=== PATIENT | male | born 1990 | race Caucasian/White ===

== ENCOUNTER 2017-08-30 14:52 | Inpatient (IN) | payer MEDICAID, SELFPAY ==
[2017-08-30 15:25] VITALS: BP 139/73; PULSE 73; RESP 16; TEMP 35.9; O2SAT 100; BMI 18.7
--- NOTE | 2017-08-30 15:58 | PCM.HP.STD ---
Problem List (1) Polysubstance (including opioids) dependence, daily use Status: Chronic (2) Mild benzodiazepine use disorder Status: Chronic (3) Opioid withdrawal delirium, acute, hyperactive Status: Acute (4) Nicotine dependence Status: Chronic (5) Methamphetamine dependence, continuous Status: Chronic History of Present Illness Date of Admission: 08/30/17 Chief Complaint: Opioid withdrawal symptoms The patient is a 27 year old M with history of polysubstance use including IV heroin, IV methamphetamine, occasional Xanax and nicotine dependence was admitted through [facility] for medical stabilization of acute opioid and polysubstance withdrawal syndrome. Patient complaining of restlessness, anxiety, muscle aches and pain, dry mouth. He denies diarrhea. He never been admitted for medical stabilization. 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 He still follows every 3 month and [facility]. His sed rate is in remission and does not require adjuvant treatment. [] Past Medical History Past Medical History (Chronic Problems): Chronic Problems Polysubstance (including opioids) dependence, daily use (Chronic) Mild benzodiazepine use disorder (Chronic) Nicotine dependence (Chronic) Methamphetamine dependence, continuous (Chronic) Home Medications: Ambulatory Orders Medication Instructions Recorded NK [NK] 08/30/17 Smoking Status: Current every day smoker Alcohol: None Drugs: Heroin - *Family History Paternal History Items: No pertinent history Review of Systems Constitutional: Reports: Malaise, Weakness, Fatigue. Denies: Chills, Fever, Weight Change HEENT: Denies: Head Aches, Sinus Congestion, Sinus Drainage Cardiovascular: Denies: Chest Pain, Palpitations Respiratory: Denies: Cough, Shortness of breath at rest, Sputum production Gastrointestinal: Denies: Abdominal Pain, Nausea, Vomiting Genitourinary: Denies: Dysuria Musculoskeletal: Reports: Joint Pain, Leg Pain, Muscle pain. Denies: Joint Tenderness Skin: Denies: Rash, Wounds Neurological: Denies: Numbness, Tingling, Focal weakness Psychiatric: Reports: Anxiety. Denies: Depression, Homicidal Ideations, Suicidal Ideations Hematologic/ Lymphatic: Denies: Easy Bruising, Easy Bleeding VTE Information - Inpt Only VTE Present on Admission: No VTE Mechan Device Prophylaxis: None VTE Pharm Prophylaxis ordered?: No Reason prophylaxis not ordered:: Procedure Not Indicated - Low risk Patient Problems: Active and Suspected Problems Opioid withdrawal delirium, acute, hyperactive (Acute) - Physical Exam General: Alert, Oriented x3, Cooperative HEENT: Atraumatic, PERRLA, EOMI, Normocephalic Oral: Dry Mucosa, - - Right lateral half of lung resection. On exam scar tissue palpated. Neck: Supple, No JVD, Negative Carotid Bruits Lungs: Clear to auscultation, Normal air movement, No rhonchi, No wheeze, No rales Cardiovascular: Regular rate, No murmurs Abdomen: Bowel Sounds Present, Soft, Non Tender Extremities: No edema, Capillary Refill Less than 3 Seconds Skin: No rashes, No breakdown, - - Needle zeng presents of her bilateral antecubital region Musculoskeletal: No Tenderness to Palpation of Joints or Extremities Lymphatic: - - No cervical adenopathy Neurological: Cranial nerves II-XII grossly intact, Neuro grossly intact Psych/Mental Status: Normal Affect, Appropriate Vital Signs Temp Pulse Resp BP Pulse Ox 96.6 F L 73 16 139/73 H 100 08/30/17 15:25 08/30/17 15:25 08/30/17 15:25 08/30/17 15:25 08/30/17 15:25 Oxygen Delivery Method Room Air Assessment/Plan Active and Suspected Problems Opioid withdrawal delirium, acute, hyperactive (Acute) The patient is a 27 year old M with history of polysubstance use including IV heroin, IV methamphetamine, occasional Xanax and nicotine dependence was admitted through [facility] program for medical stabilization of acute opioid and polysubstance withdrawal syndrome. Patient complaining of restlessness, anxiety, muscle aches and pain, dry mouth. He denies diarrhea. He never been admitted for medical stabilization. 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 He still follows every 3 month and [facility]. His sed rate is in remission and does not require adjuvant treatment. [] 1. Acute heroin withdrawal: Patient is being admitted on the regular floor and on [facility] protocol for medical stabilization. Labs ordered stat including hepatitis profile, folic acid, B12 and vitamin B1. Patient denies previous history of needle abscess or infective endocarditis. 2. Polysubstance use including IV heroin, methamphetamine, occasional use of benzodiazepine, Xanax: U tox is ordered. Counseling done for cessation of substance use. Patient will need outpatient rehab as per [facility] protocol. 3. Tongue cancer status post right lateral half glossectomy: In remission. Follows [facility] ENT every quarterly as mentioned above 4. Nicotine dependence: On nicotine patch. DVT prophylaxis: Low risk no prophylaxis indicated. Code Visit Inpatient E&M: 19810 Init Hosp L3
[2017-08-30 16:05] VITALS: RESP 16
[2017-08-30] MEDS: Ibuprofen 600 MG Tablet PO (16:25)
[2017-08-30] MEDS: Buprenorphine HCl 2 MG TAB.SUBL SL ×2 (16:25→23:31)
[2017-08-30] MEDS: cloNIDine HCl 0.1 MG Tablet PO (16:25)
[2017-08-30] MEDS: chlordiazePOXIDE 25 MG Capsule PO ×3 (16:26→23:31)
[2017-08-30] MEDS: Methocarbamol 750 MG Tablet PO (16:26)
--- NOTE | 2017-08-30 16:28 | NURSING ---
Jj Rodriguez, at the bedside.
[2017-08-30 16:34] LABS: Prothrombin Time (Protime)PT. 12.8 SECONDS (11.7-14.9)
--- NOTE | 2017-08-30 16:41 | CHAPLAIN ---
Type of Pastoral Visit _x__ Initial Visit ___ Follow-up Visit ___ On-call Visit ___ General Patient Visit ___ Spiritual Assessment ___ Family Conference ___ Bereavement ___ Rapid Response ___ Code Blue ___ Other (describe below) Pastoral Care Referral From _x__ Patient ___ Family ___ Nurse ___ Physician ___ Director Of Public Works ___ Revenue Stamper _x - [facility] staff - Other (describe below) Sacrament/Intervention _x__ Active listening ___ Anointing ___ Islam ___ Bereavement ___ Communion ___ Brittny exploration ___ _x__ Life review _x__ Prayer ___ Reconciliation ___ Sacrament of Sick _x__ Supportive presence ___ Wedding ___ Other (describe below) Pastoral Comments eleven years of drug use admitted by patient; patient mother of suicide two years ago next week and pt admits that I have not dealt with that yet; pt has Alevism heritage and synagogue involvement as young person but says that he wavers in brittny; pt is musical and plays drums and guitar
[2017-08-30 17:00] LABS: ALB/GLOB Ratio 0.8 RATIO (0.9-2.4); AST(SGOT) 14 U/L (15-37); Alanine Aminotransfer ALT/SGPT 18 U/L (12-78); Albumin, Serum 3.3 g/dL (3.4-5.0); Alkaline Phosphatase 66 U/L (45-117); Amylase 51 U/L (25-115); Anion Gap 6 (5-15); BUN 11 mg/dL (7-18); BUN/Creat Ratio 14.2 RATIO (10-20); Calcium,Total 8.3 mg/dL (8.5-10.1); Chloride 104 mmol/L (98-107); Creatinine, Serum 0.77 mg/dL (0.70-1.30); EST Glomerular Filtration Rate 126 mL/min (>60); Est Glom Filt Rate - Afr Amer 153 mL/min (>60); Estimated Creatinine Clearance 136.15 ml/min; Glucose 70 mg/dL (70-110); Lipase 106 U/L (73-393); Potassium 3.7 mmol/L (3.5-5.1); Protein, Total 7.3 g/dL (6.4-8.2); Sodium Level 141 mmol/L (136-145)
[2017-08-30 17:07] LABS: Alcohol, Blood (Medical)-Serum < 3.0 mg/dL
[2017-08-30 17:58] LABS: Absolute Lymphocyte Count 3.22 X10^3/ul (0.83-4.51); Absolute Neutrophil Count 5.1 X10^3/uL (2.0-7.7); Basophil# 0.34 X10^3/uL; Basophil% 3.5 % (0-1); Eosinophil# 0.32 X10^3/uL; Eosinophils% 3.3 % (0-5); Hematocrit 38.1 % (40-54); Lymphocyte # 3.22 X10^3/ul (4.0); Lymphocyte % 32.9 % (19-41); Mean Corp Hgb Conc 34.1 g/gl (32-36); Mean Corpuscular Hgb 33.1 pg (27.0-32.0); Mean Corpuscular Volume 96.9 fL (80-94); Mean Platelet Vol. 10.2 fl (6.2-12.0); Monocyte# 0.75 X10^3/uL; Monocyte% 7.7 % (0-10); Neutrophil # 5.13 X10^3/uL (2.7-7.7); Neutrophil % 52.2 % (47-70); Platelet Count 251 K/mm3 (150-450); RBC Distribution Width SD 41.6 fl (35.1-43.9); Red Blood Count 3.93 M/mm3 (4.6-6.2); White Blood Count 9.8 K/mm3 (4.4-11.0)
[2017-08-30 17:59] LABS: Differential Indicated SCAN CRITERIA MET; POSITIVE COUNT NO; POSITIVE DIFFERENTIAL NO; POSITIVE MORPHOLOGY YES
[2017-08-30 18:08] LABS: Amphetamine Urine VISTA NEGATIVE (<1000 ng/mL); Barbiturate Urine VISTA NEGATIVE (< 200 ng/mL); Benzodiazepine Urine VISTA NEGATIVE (< 200 ng/mL); Cocaine Urine VISTA NEGATIVE (< 300 ng/mL); Ecstacy Urine VISTA NEGATIVE (< 500 ng/mL); Methadone Urine VISTA NEGATIVE (< 300 ng/mL); PCP Urine VISTA NEGATIVE (< 25 ng/mL); THC Urine VISTA NEGATIVE (< 50 ng/mL); Vista UDS pH Range 6
[2017-08-30 18:20] VITALS: RESP 16
--- NOTE | 2017-08-30 18:20 | NURSING ---
Nurse leaves message at [phone] to inquire about dinner tray.
[2017-08-30] MEDS: Acetaminophen 500 MG Tablet PO (18:28)
[2017-08-30 18:55] LABS: Differential Comment SCANNED
[2017-08-30 19:57] VITALS: BP 114/68; PULSE 70; RESP 16; TEMP 36.6
[2017-08-30 20:02] VITALS: BP 114/68; PULSE 70; RESP 16; TEMP 36.6; O2SAT 98
[2017-08-30 23:28] VITALS: BP 118/67; PULSE 66; RESP 16; TEMP 36.4; O2SAT 97
[2017-08-30] MEDS: traZODone 50 MG Tablet PO (23:31)
[2017-08-31] VITALS (7 sets, daily range): BP systolic 110–121; BP diastolic 49–63; PULSE 64–77; RESP 16–18; TEMP 35.7–36.6; O2SAT 98–100
[2017-08-31] MEDS: Methocarbamol 750 MG Tablet PO ×2 (04:07→22:49)
[2017-08-31] MEDS: chlordiazePOXIDE 25 MG Capsule PO ×4 (04:07→18:07)
--- NOTE | 2017-08-31 07:46 | PCM.PROGNOTE ---
Patient Problems: Active and Suspected Problems Opioid withdrawal delirium, acute, hyperactive (Acute) Subjective: Patient is a 27-year-old male with a past medical history of nicotine dependence, polysubstance abuse (including intravenous heroin, intravenous methamphetamine and occasional Xanax) and hx of tongue CA with resection of the right lateral half who presented to the [facility] office at [facility] on 08/30 requesting admission to the hospital for medical stabilization for acute opiate withdrawal. He complained of restlessness, anxiety, muscle aches and pain and a dry mouth. He has never been admitted for detox in the past. Urine tox screen was negative for opiates and negative for amphetamines. Hepatitis panel is pending but he tells me that he was positive for hep C 1 year ago....HIV was negative. Has been using heroin for 10 years and meth for 6. Admits to hallucinating when using Meth. Last used meth and Heroin on 08/28. He is not using heroin because the tox screen is negative for opiates....most likely using Fentanyl. He also had suboxone prior to admission to help withdrawal symptoms. He tells me he wants to get clean before this kills him and he plans on going to a residential facility at [place]. - Physical Exam General: Alert, Oriented x3, Cooperative, No apparent distress, - - He is very thin HEENT: Atraumatic, PERRLA, EOMI Oral: Moist Mucosa Neck: Supple, Trachea Midline Lungs: Clear to auscultation Cardiovascular: Regular rate, Regular Rhythm, Normal S1, Normal S2, No Gallop Abdomen: Bowel Sounds Present, Soft, Non Tender, Non-Distended Skin: No rashes Neurological: Cranial nerves II-XII grossly intact, Neuro grossly intact Psych/Mental Status: Appropriate Vital Signs Temp Pulse Resp BP Pulse Ox 97.5 F L 66 16 112/63 100 08/31/17 04:05 08/31/17 04:05 08/31/17 04:05 08/31/17 04:05 08/31/17 04:05 Oxygen Delivery Method Room Air Weight: 149 lb 14.629 oz Body Mass Index (BMI) 18.7 Intake and Output for Last 24 Hours 08/29/17 08/30/17 08/31/17 23:59 23:59 23:59 Intake Total 980 / 980 500 / 500 Balance 980 / 980 500 / 500 Laboratory Tests Past 24 Hrs 08/30/17 08/30/17 08/30/17 16:16 16:16 16:16 WBC 9.8 RBC 3.93 L Hgb 13.0 Hct 38.1 L MCV 96.9 H MCH 33.1 H MCHC 34.1 RDW 12.0 RDW Differential 41.6 Plt Count 251 MPV 10.2 Immature Gran % (Auto) 0.400 Neut % (Auto) 52.2 Lymph % (Auto) 32.9 [place] % (Auto) 7.7 Eos % (Auto) 3.3 Baso % (Auto) 3.5 H Absolute Neuts (auto) 5.1 Absolute Lymphs (auto) 3.22 Total Counted Not Reportable Differential Comment SCANNED PT INR Sodium 141 Potassium 3.7 Chloride 104 Carbon Dioxide 31.0 Anion Gap 6 BUN 11 Creatinine 0.77 Estim Creat Clear Calc 136.15 Est GFR (MDRD) Af Amer 153 Est GFR (MDRD) Non-Af 126 BUN/Creatinine Ratio 14.2 Glucose 70 Calcium 8.3 L Total Bilirubin 0.30 AST 14 L ALT 18 Alkaline Phosphatase 66 Total Protein 7.3 Albumin 3.3 L Globulin 4.0 Albumin/Globulin Ratio 0.8 L Amylase 51 Lipase 106 Whole Bld Vitamin B1 Vitamin B12 Folate 11.30 Urine Opiates Screen Urine Methadone Screen Ur Barbiturates Screen Ur Phencyclidine Scrn Ur Amphetamines Screen U Methamphetamin-MDMA U Benzodiazepines Scrn Urine Cocaine Screen U Cannabinoids Screen Ur Drug Screen Comment Ethyl Alcohol < 3.0 Hepatitis A IgM Ab Hep Bs Antigen Hep B Core IgM Ab Hepatitis C Ab (EIA) 08/30/17 08/30/17 08/30/17 16:16 17:40 19:37 WBC RBC Hgb Hct MCV MCH MCHC RDW RDW Differential Plt Count MPV Immature Gran % (Auto) Neut % (Auto) Lymph % (Auto) [place] % (Auto) Eos % (Auto) Baso % (Auto) Absolute Neuts (auto) Absolute Lymphs (auto) Total Counted Differential Comment PT 12.8 INR 1.0 Sodium Potassium Chloride Carbon Dioxide Anion Gap BUN Creatinine Estim Creat Clear Calc Est GFR (MDRD) Af Amer Est GFR (MDRD) Non-Af BUN/Creatinine Ratio Glucose Calcium Total Bilirubin AST ALT Alkaline Phosphatase Total Protein Albumin Globulin Albumin/Globulin Ratio Amylase Lipase Whole Bld Vitamin B1 Vitamin B12 Folate Urine Opiates Screen NEGATIVE Urine Methadone Screen NEGATIVE Ur Barbiturates Screen NEGATIVE Ur Phencyclidine Scrn NEGATIVE Ur Amphetamines Screen NEGATIVE U Methamphetamin-MDMA NEGATIVE U Benzodiazepines Scrn NEGATIVE Urine Cocaine Screen NEGATIVE U Cannabinoids Screen NEGATIVE Ur Drug Screen Comment Ethyl Alcohol Hepatitis A IgM Ab Pending Hep Bs Antigen Pending Hep B Core IgM Ab Pending Hepatitis C Ab (EIA) Pending 08/30/17 08/30/17 19:37 19:37 WBC RBC Hgb Hct MCV MCH MCHC RDW RDW Differential Plt Count MPV Immature Gran % (Auto) Neut % (Auto) Lymph % (Auto) [place] % (Auto) Eos % (Auto) Baso % (Auto) Absolute Neuts (auto) Absolute Lymphs (auto) Total Counted Differential Comment PT INR Sodium Potassium Chloride Carbon Dioxide Anion Gap BUN Creatinine Estim Creat Clear Calc Est GFR (MDRD) Af Amer Est GFR (MDRD) Non-Af BUN/Creatinine Ratio Glucose Calcium Total Bilirubin AST ALT Alkaline Phosphatase Total Protein Albumin Globulin Albumin/Globulin Ratio Amylase Lipase Whole Bld Vitamin B1 Pending Vitamin B12 Pending Folate Urine Opiates Screen Urine Methadone Screen Ur Barbiturates Screen Ur Phencyclidine Scrn Ur Amphetamines Screen U Methamphetamin-MDMA U Benzodiazepines Scrn Urine Cocaine Screen U Cannabinoids Screen Ur Drug Screen Comment Ethyl Alcohol Hepatitis A IgM Ab Hep Bs Antigen Hep B Core IgM Ab Hepatitis C Ab (EIA) Assessment/Plan Active and Suspected Problems Opioid withdrawal delirium, acute, hyperactive (Acute) Impressions 1. Acute opiate withdrawal -likely using fentanyl intravenously because tox screen negative for opiates 2. Methamphetamine use 3. History of anxiety/depression which precipitated his polysubstance abuse 10 years ago. Has been on Klonopin and sertraline in the past but does not want to start anything at this point before he is stable off opiates and methamphetamine 4. History of hepatitis C Continue with [facility] program for medical stabilization for acute withdrawal from opiates. Code Visit Inpatient E&M: 25530 Subs Hosp L2
--- NOTE | 2017-08-31 07:51 | PN_ITS ---
Patient Problems: Active and Suspected Problems Opioid withdrawal delirium, acute, hyperactive (Acute) Subjective: Patient is a 27-year-old male with a past medical history of nicotine dependence , polysubstance abuse (including intravenous heroin, intravenous methamphetamine and occasional Xanax) and hx of tongue CA with resection of the right lateral half who presented to the [facility] office at [facility] on 08/30 requesting admission to the hospital for medical stabilization for acute opiate withdrawal. He complained of restlessness, anxiety, muscle aches and pain and a dry mouth. He has never been admitted for detox in the past. Urine tox screen was negative for opiates and negative for amphetamines. Hepatitis panel is pending but he tells me that he was positive for hep C 1 year ago....HIV was negative. Has been using heroin for 10 years and meth for 6. Admits to hallucinating when using Meth. Last used meth and Heroin on 08/28. He is not using heroin because the tox screen is negative for opiates....most likely using Fentanyl. He also had suboxone prior to admission to help withdrawal symptoms. He tells me he wants to get clean before this kills him and he plans on going to a residential facility at [place]. - Physical Exam General: Alert, Oriented x3, Cooperative, No apparent distress, - - He is very thin HEENT: Atraumatic, PERRLA, EOMI Oral: Moist Mucosa Neck: Supple, Trachea Midline Lungs: Clear to auscultation Cardiovascular: Regular rate, Regular Rhythm, Normal S1, Normal S2, No Gallop Abdomen: Bowel Sounds Present, Soft, Non Tender, Non-Distended Skin: No rashes Neurological: Cranial nerves II-XII grossly intact, Neuro grossly intact Psych/Mental Status: Appropriate Vital Signs Temp Pulse Resp BP Pulse Ox 97.5 F L 66 16 112/63 100 08/31/17 04:05 08/31/17 04:05 08/31/17 04:05 08/31/17 04:05 08/31/17 04:05 Oxygen Delivery Method Room Air Weight: 149 lb 14.629 oz Body Mass Index (BMI) 18.7 Intake and Output for Last 24 Hours 08/29/17 08/30/17 08/31/17 23:59 23:59 23:59 Intake Total 980 / 980 500 / 500 Balance 980 / 980 500 / 500 Laboratory Tests Past 24 Hrs 08/30/17 08/30/17 08/30/17 16:16 16:16 16:16 WBC 9.8 RBC 3.93 L Hgb 13.0 Hct 38.1 L MCV 96.9 H MCH 33.1 H MCHC 34.1 RDW 12.0 RDW Differential 41.6 Plt Count 251 MPV 10.2 Immature Gran % (Auto) 0.400 Neut % (Auto) 52.2 Lymph % (Auto) 32.9 [place] % (Auto) 7.7 Eos % (Auto) 3.3 Baso % (Auto) 3.5 H Absolute Neuts (auto) 5.1 Absolute Lymphs (auto) 3.22 Total Counted Not Reportable Differential Comment SCANNED PT INR Sodium 141 Potassium 3.7 Chloride 104 Carbon Dioxide 31.0 Anion Gap 6 BUN 11 Creatinine 0.77 Estim Creat Clear Calc 136.15 Est GFR (MDRD) Af Amer 153 Est GFR (MDRD) Non-Af 126 BUN/Creatinine Ratio 14.2 Glucose 70 Calcium 8.3 L Total Bilirubin 0.30 AST 14 L ALT 18 Alkaline Phosphatase 66 Total Protein 7.3 Albumin 3.3 L Globulin 4.0 Albumin/Globulin Ratio 0.8 L Amylase 51 Lipase 106 Whole Bld Vitamin B1 Vitamin B12 Folate 11.30 Urine Opiates Screen Urine Methadone Screen Ur Barbiturates Screen Ur Phencyclidine Scrn Ur Amphetamines Screen U Methamphetamin-MDMA U Benzodiazepines Scrn Urine Cocaine Screen U Cannabinoids Screen Ur Drug Screen Comment Ethyl Alcohol < 3.0 Hepatitis A IgM Ab Hep Bs Antigen Hep B Core IgM Ab Hepatitis C Ab (EIA) 08/30/17 08/30/17 08/30/17 16:16 17:40 19:37 WBC RBC Hgb Hct MCV MCH MCHC RDW RDW Differential Plt Count MPV Immature Gran % (Auto) Neut % (Auto) Lymph % (Auto) [place] % (Auto) Eos % (Auto) Baso % (Auto) Absolute Neuts (auto) Absolute Lymphs (auto) Total Counted Differential Comment PT 12.8 INR 1.0 Sodium Potassium Chloride Carbon Dioxide Anion Gap BUN Creatinine Estim Creat Clear Calc Est GFR (MDRD) Af Amer Est GFR (MDRD) Non-Af BUN/Creatinine Ratio Glucose Calcium Total Bilirubin AST ALT Alkaline Phosphatase Total Protein Albumin Globulin Albumin/Globulin Ratio Amylase Lipase Whole Bld Vitamin B1 Vitamin B12 Folate Urine Opiates Screen NEGATIVE Urine Methadone Screen NEGATIVE Ur Barbiturates Screen NEGATIVE Ur Phencyclidine Scrn NEGATIVE Ur Amphetamines Screen NEGATIVE U Methamphetamin-MDMA NEGATIVE U Benzodiazepines Scrn NEGATIVE Urine Cocaine Screen NEGATIVE U Cannabinoids Screen NEGATIVE Ur Drug Screen Comment Ethyl Alcohol Hepatitis A IgM Ab Pending Hep Bs Antigen Pending Hep B Core IgM Ab Pending Hepatitis C Ab (EIA) Pending 08/30/17 08/30/17 19:37 19:37 WBC RBC Hgb Hct MCV MCH MCHC RDW RDW Differential Plt Count MPV Immature Gran % (Auto) Neut % (Auto) Lymph % (Auto) [place] % (Auto) Eos % (Auto) Baso % (Auto) Absolute Neuts (auto) Absolute Lymphs (auto) Total Counted Differential Comment PT INR Sodium Potassium Chloride Carbon Dioxide Anion Gap BUN Creatinine Estim Creat Clear Calc Est GFR (MDRD) Af Amer Est GFR (MDRD) Non-Af BUN/Creatinine Ratio Glucose Calcium Total Bilirubin AST ALT Alkaline Phosphatase Total Protein Albumin Globulin Albumin/Globulin Ratio Amylase Lipase Whole Bld Vitamin B1 Pending Vitamin B12 Pending Folate Urine Opiates Screen Urine Methadone Screen Ur Barbiturates Screen Ur Phencyclidine Scrn Ur Amphetamines Screen U Methamphetamin-MDMA U Benzodiazepines Scrn Urine Cocaine Screen U Cannabinoids Screen Ur Drug Screen Comment Ethyl Alcohol Hepatitis A IgM Ab Hep Bs Antigen Hep B Core IgM Ab Hepatitis C Ab (EIA) Assessment/Plan Active and Suspected Problems Opioid withdrawal delirium, acute, hyperactive (Acute) Impressions 1. Acute opiate withdrawal -likely using fentanyl intravenously because tox screen negative for opiates 2. Methamphetamine use 3. History of anxiety/depression which precipitated his polysubstance abuse 10 years ago. Has been on Klonopin and sertraline in the past but does not want to start anything at this point before he is stable off opiates and methamphetamine 4. History of hepatitis C Continue with [facility] program for medical stabilization for acute withdrawal from opiates. Code Visit Inpatient E&M: 32561 Subs Hosp L2
[2017-08-31] MEDS: Buprenorphine HCl 2 MG TAB.SUBL SL ×3 (09:06→23:00)
[2017-08-31] MEDS: Ibuprofen 600 MG Tablet PO ×2 (09:07→22:49)
[2017-08-31] MEDS: Pramipexole Di-HCl 0.25 MG Tablet PO (09:07)
[2017-08-31] MEDS: Thiamine Hydrochloride 100 MG Tablet PO (09:08)
[2017-08-31] MEDS: Multivitamins,Ther W-Minerals Tablet 1 TABLET PO (09:08)
[2017-08-31] MEDS: Folic Acid 1 MG Tablet PO (09:08)
[2017-08-31] MEDS: cloNIDine HCl 0.1 MG Tablet PO (22:49)
[2017-08-31] MEDS: traZODone 50 MG Tablet PO (22:49)
[2017-09-01] VITALS (7 sets, daily range): BP systolic 101–116; BP diastolic 57–68; PULSE 64–72; RESP 16–18; TEMP 36.6–36.8; O2SAT 97–100
[2017-09-01] MEDS: Buprenorphine HCl 2 MG TAB.SUBL SL ×2 (07:57→19:52)
[2017-09-01] MEDS: chlordiazePOXIDE 25 MG Capsule PO ×3 (07:58→19:52)
[2017-09-01] MEDS: Multivitamins,Ther W-Minerals Tablet 1 TABLET PO (07:58)
[2017-09-01] MEDS: Folic Acid 1 MG Tablet PO (07:58)
[2017-09-01] MEDS: Thiamine Hydrochloride 100 MG Tablet PO (07:58)
[2017-09-01] MEDS: Pramipexole Di-HCl 0.25 MG Tablet PO (07:58)
--- NOTE | 2017-09-01 08:52 | PCM.PROGNOTE ---
Patient Problems: Active and Suspected Problems Opioid withdrawal delirium, acute, hyperactive (Acute) Subjective: Patient is a 27-year-old male with a past medical history of nicotine dependence, polysubstance abuse (including intravenous heroin, intravenous methamphetamine and occasional Xanax) and hx of tongue CA with resection of the right lateral half who presented to the [facility] office at [facility] on 08/30 requesting admission to the hospital for medical stabilization for acute opiate withdrawal. He remains afebrile with stable vital signs. Hepatitis panel is still pending however the patient admits to having hepatitis C. B1 and B12 levels are pending. He is having some constipation today. Slept well Has been in a Suboxone program in the past and also tried Vivitrol for 2 months but had Pain in his teeth, was lethargic and had headaches. He would be interested in a Suboxone program......does not know if the residential program he is going to deals with suboxone. - Physical Exam General: Alert, Oriented x3, Cooperative, No apparent distress, - - no restless movements today HEENT: Atraumatic, PERRLA, EOMI Oral: Dry Mucosa Lungs: Clear to auscultation Cardiovascular: Regular rate, Regular Rhythm, Normal S1, Normal S2, No rub noted, No Gallop Abdomen: Bowel Sounds Present, Soft, Non Tender, Non-Distended Extremities: No cyanosis, No edema Psych/Mental Status: Normal Affect, Appropriate Vital Signs Temp Pulse Resp BP Pulse Ox 97.8 F 64 16 101/57 L 97 09/01/17 08:00 09/01/17 08:05 09/01/17 08:00 09/01/17 08:00 09/01/17 08:01 Oxygen Delivery Method Room Air Weight: 149 lb 14.629 oz Body Mass Index (BMI) 18.7 Intake and Output for Last 24 Hours 08/30/17 08/31/17 09/01/17 23:59 23:59 23:59 Intake Total 980 / 980 500 / 500 Balance 980 / 980 500 / 500 Assessment/Plan Active and Suspected Problems Opioid withdrawal delirium, acute, hyperactive (Acute) Impressions 1. Acute opiate withdrawal -likely using fentanyl intravenously because tox screen negative for opiates 2. Methamphetamine use 3. History of anxiety/depression which precipitated his polysubstance abuse 10 years ago. Has been on Klonopin and sertraline in the past but does not want to start anything at this point before he is stable off opiates and methamphetamine 4. History of hepatitis C 5. constipation Continue with [facility] program for medical stabilization for acute withdrawal from opiates. Start Miralax
[2017-09-01] MEDS: Polyethylene Glycol 3350 17 GM PACKET PO (10:33)
[2017-09-01 16:07] LABS: HEPATITIS B SURFACE AG Negative (Negative); Hepatitis A IgM Antibody Negative (Negative); Hepatitis B Core AB IgM Negative (Negative)
[2017-09-01] MEDS: traZODone 50 MG Tablet PO (21:52)
[2017-09-02 09:25] VITALS: BP 119/54; PULSE 86; RESP 16; TEMP 36.9
[2017-09-02] MEDS: Methocarbamol 750 MG Tablet PO (09:32)
[2017-09-02] MEDS: cloNIDine HCl 0.1 MG Tablet PO (09:32)
[2017-09-02] MEDS: Ibuprofen 600 MG Tablet PO (09:32)
[2017-09-02] MEDS: Buprenorphine HCl 2 MG TAB.SUBL SL (09:32)
[2017-09-02] MEDS: Polyethylene Glycol 3350 17 GM PACKET PO (09:33)
[2017-09-02] MEDS: Thiamine Hydrochloride 100 MG Tablet PO (09:33)
[2017-09-02] MEDS: Pramipexole Di-HCl 0.25 MG Tablet PO (09:34)
[2017-09-02] MEDS: Folic Acid 1 MG Tablet PO (09:34)
[2017-09-02] MEDS: Multivitamins,Ther W-Minerals Tablet 1 TABLET PO (09:34)
[2017-09-02 09:46] LABS: Vitamin B12 382 pg/mL (211-911)
--- NOTE | 2017-09-02 10:03 | DCINST_ITS ---
- Discharge Diagnoses Current Active Problems: Current Active and Chronic Problems Polysubstance (including opioids) dependence, daily use (Chronic) Mild benzodiazepine use disorder (Chronic) Opioid withdrawal delirium, acute, hyperactive (Acute) Nicotine dependence (Chronic) Methamphetamine dependence, continuous (Chronic) You will use the following diet at home:: No restrictions Your food should be the consistency of: Regular Your liquids should be the consistency of: Regular/Thin Discharge Activity: Return to Normal Activity Call your doctor if you observe: Fever of 101 or Higher, Shortness of breath, - - cough, nausea/vomiting Additional Instructions: I am giving you a prescription for a nicotine patch but , I will leave it up to you whether or not you want to get the prescription filled. Good luck...I think going to a residential facility is a bautista choice and I also think not taking Suboxone is a good devision.......suboxone is frequently abused and you trade 1 addiction for another. Sometimes it takes a few times in rehab before it sticks and I applaud you for continuing to try and better your life. Pending Tests on Discharge: hepatitis panel Allergies/Adverse Reactions: Allergies No Known Allergies Allergy (Verified 08/30/17 16:06) Medications to take at Discharge Nicotine [Nicoderm Cq] 21 mg TRANSDERM. DAILY #28 patch 09/02/17 The following prescriptions were given: Nicotine [Nicoderm Cq] 21 mg TRANSDERM. DAILY #28 patch Primary Care Physician: Care Physician,No Primary [Primary Care Provider] - Proposed Discharge Date: 09/02/17
--- NOTE | 2017-09-02 10:03 | PCM.DC.SUM ---
Discharge Date and Diagnosis - Problem List Patient Problems: Active and Suspected Problems Opioid withdrawal delirium, acute, hyperactive (Acute) Date of Admission: 08/30/17 Date of Discharge: 09/02/17 - Primary Discharge Diagnosis Active and Suspected Problems Opioid withdrawal delirium, acute, hyperactive (Acute) - Secondary Discharge Diagnosis Chronic Problems Hepatitis C (Chronic) Anxiety and depression (Chronic) - started when he was 17 Polysubstance (including opioids) dependence, daily use (Chronic) Mild benzodiazepine use disorder (Chronic) Nicotine dependence (Chronic) Methamphetamine dependence, continuous (Chronic) Hospital Course and Treatment Imaging Results: Laboratory Results - last 24 hr 08/30/17 19:37 Vitamin B12 382 Laboratory Tests 08/30/17 08/30/17 08/30/17 16:16 16:16 16:16 WBC 9.8 RBC 3.93 L Hgb 13.0 Hct 38.1 L MCV 96.9 H MCH 33.1 H MCHC 34.1 RDW 12.0 RDW Differential 41.6 Plt Count 251 MPV 10.2 Immature Gran % (Auto) 0.400 Neut % (Auto) 52.2 Lymph % (Auto) 32.9 [place] % (Auto) 7.7 Eos % (Auto) 3.3 Baso % (Auto) 3.5 H Absolute Neuts (auto) 5.1 Absolute Lymphs (auto) 3.22 Total Counted Not Reportable Differential Comment SCANNED PT INR Sodium 141 Potassium 3.7 Chloride 104 Carbon Dioxide 31.0 Anion Gap 6 BUN 11 Creatinine 0.77 Estim Creat Clear Calc 136.15 Est GFR (MDRD) Af Amer 153 Est GFR (MDRD) Non-Af 126 BUN/Creatinine Ratio 14.2 Glucose 70 Calcium 8.3 L Total Bilirubin 0.30 AST 14 L ALT 18 Alkaline Phosphatase 66 Total Protein 7.3 Albumin 3.3 L Globulin 4.0 Albumin/Globulin Ratio 0.8 L Amylase 51 Lipase 106 Vitamin B12 Folate 11.30 Urine Opiates Screen Urine Methadone Screen Ur Barbiturates Screen Ur Phencyclidine Scrn Ur Amphetamines Screen U Methamphetamin-MDMA U Benzodiazepines Scrn Urine Cocaine Screen U Cannabinoids Screen Ur Drug Screen Comment Ethyl Alcohol < 3.0 08/30/17 08/30/17 08/30/17 16:16 17:40 19:37 WBC RBC Hgb Hct MCV MCH MCHC RDW RDW Differential Plt Count MPV Immature Gran % (Auto) Neut % (Auto) Lymph % (Auto) [place] % (Auto) Eos % (Auto) Baso % (Auto) Absolute Neuts (auto) Absolute Lymphs (auto) Total Counted Differential Comment PT 12.8 INR 1.0 Sodium Potassium Chloride Carbon Dioxide Anion Gap BUN Creatinine Estim Creat Clear Calc Est GFR (MDRD) Af Amer Est GFR (MDRD) Non-Af BUN/Creatinine Ratio Glucose Calcium Total Bilirubin AST ALT Alkaline Phosphatase Total Protein Albumin Globulin Albumin/Globulin Ratio Amylase Lipase Vitamin B12 382 Folate Urine Opiates Screen NEGATIVE Urine Methadone Screen NEGATIVE Ur Barbiturates Screen NEGATIVE Ur Phencyclidine Scrn NEGATIVE Ur Amphetamines Screen NEGATIVE U Methamphetamin-MDMA NEGATIVE U Benzodiazepines Scrn NEGATIVE Urine Cocaine Screen NEGATIVE U Cannabinoids Screen NEGATIVE Ur Drug Screen Comment Ethyl Alcohol None Operations: None Procedures: None Summary of Care Provided: Patient is a 27-year-old male with a past medical history of nicotine dependence, hepatitis C, polysubstance abuse (including intravenous heroin, intravenous methamphetamine and occasional Xanax) and 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 He complained of restlessness, anxiety, muscle aches and pain and a dry mouth. He was admitted to the hospital and the [facility] protocol for Opiate withdrawal was initiated. Lab was unremarkable. B12 and folate were within normal limits. Urine tox screen was negative for opioids and methamphetamine. A hepatitis panel was ordered but, the results are still pending at the time of [place]. He has known Hep C and he had a negative HIV 1 year ago. He will be going to a residential rehab program at [place]. He has declined Suboxone and Vivitrol treatment because this has not worked for him in the past. He was given a prescription for a Nicotine patch at [place]. PE: alert and oriented X 3 Lungs - CTA HRRR with no MM and no gallop ABD -soft, nontender, nondistended, normal bowel sounds No rashes, no evident cellulitis, no calf tenderness and no edema Neurologic exam-normal This note was generated with [employer] dictation software. It may contain incorrect words, spelling, and punctuation that were not noted in checking the note before signing. Discharge Activity: Return to Normal Activity Call your doctor if you observe: Fever of 101 or Higher, Shortness of breath, - - cough, nausea/vomiting Home Medications: Medications to take at Discharge Nicotine [Nicoderm Cq] 21 mg TRANSDERM. DAILY #28 patch 09/02/17 Following Prescrptions Were Given to Patient: Nicotine [Nicoderm Cq] 21 mg TRANSDERM. DAILY #28 patch Primary Care Physician: Care Physician,No Primary [Primary Care Provider] - Disposition: residential drug tx program Minutes spent on discharge:: 30 Patient Condition:: Good Meaningful Use Info Meaningful Use Diagnoses (Choose all that apply): None applicable
--- NOTE | 2017-09-02 10:12 | DS.PCM_ITS ---
Discharge Date and Diagnosis - Problem List Patient Problems: Active and Suspected Problems Opioid withdrawal delirium, acute, hyperactive (Acute) Date of Admission: 08/30/17 Date of Discharge: 09/02/17 - Primary Discharge Diagnosis Active and Suspected Problems Opioid withdrawal delirium, acute, hyperactive (Acute) - Secondary Discharge Diagnosis Chronic Problems Hepatitis C (Chronic) Anxiety and depression (Chronic) - started when he was 17 Polysubstance (including opioids) dependence, daily use (Chronic) Mild benzodiazepine use disorder (Chronic) Nicotine dependence (Chronic) Methamphetamine dependence, continuous (Chronic) Hospital Course and Treatment Imaging Results: Laboratory Results - last 24 hr 08/30/17 19:37 Vitamin B12 382 Laboratory Tests 08/30/17 08/30/17 08/30/17 16:16 16:16 16:16 WBC 9.8 RBC 3.93 L Hgb 13.0 Hct 38.1 L MCV 96.9 H MCH 33.1 H MCHC 34.1 RDW 12.0 RDW Differential 41.6 Plt Count 251 MPV 10.2 Immature Gran % (Auto) 0.400 Neut % (Auto) 52.2 Lymph % (Auto) 32.9 [place] % (Auto) 7.7 Eos % (Auto) 3.3 Baso % (Auto) 3.5 H Absolute Neuts (auto) 5.1 Absolute Lymphs (auto) 3.22 Total Counted Not Reportable Differential Comment SCANNED PT INR Sodium 141 Potassium 3.7 Chloride 104 Carbon Dioxide 31.0 Anion Gap 6 BUN 11 Creatinine 0.77 Estim Creat Clear Calc 136.15 Est GFR (MDRD) Af Amer 153 Est GFR (MDRD) Non-Af 126 BUN/Creatinine Ratio 14.2 Glucose 70 Calcium 8.3 L Total Bilirubin 0.30 AST 14 L ALT 18 Alkaline Phosphatase 66 Total Protein 7.3 Albumin 3.3 L Globulin 4.0 Albumin/Globulin Ratio 0.8 L Amylase 51 Lipase 106 Vitamin B12 Folate 11.30 Urine Opiates Screen Urine Methadone Screen Ur Barbiturates Screen Ur Phencyclidine Scrn Ur Amphetamines Screen U Methamphetamin-MDMA U Benzodiazepines Scrn Urine Cocaine Screen U Cannabinoids Screen Ur Drug Screen Comment Ethyl Alcohol < 3.0 08/30/17 08/30/17 08/30/17 16:16 17:40 19:37 WBC RBC Hgb Hct MCV MCH MCHC RDW RDW Differential Plt Count MPV Immature Gran % (Auto) Neut % (Auto) Lymph % (Auto) [place] % (Auto) Eos % (Auto) Baso % (Auto) Absolute Neuts (auto) Absolute Lymphs (auto) Total Counted Differential Comment PT 12.8 INR 1.0 Sodium Potassium Chloride Carbon Dioxide Anion Gap BUN Creatinine Estim Creat Clear Calc Est GFR (MDRD) Af Amer Est GFR (MDRD) Non-Af BUN/Creatinine Ratio Glucose Calcium Total Bilirubin AST ALT Alkaline Phosphatase Total Protein Albumin Globulin Albumin/Globulin Ratio Amylase Lipase Vitamin B12 382 Folate Urine Opiates Screen NEGATIVE Urine Methadone Screen NEGATIVE Ur Barbiturates Screen NEGATIVE Ur Phencyclidine Scrn NEGATIVE Ur Amphetamines Screen NEGATIVE U Methamphetamin-MDMA NEGATIVE U Benzodiazepines Scrn NEGATIVE Urine Cocaine Screen NEGATIVE U Cannabinoids Screen NEGATIVE Ur Drug Screen Comment Ethyl Alcohol None Operations: None Procedures: None Summary of Care Provided: Patient is a 27-year-old male with a past medical history of nicotine dependence , hepatitis C, polysubstance abuse (including intravenous heroin, intravenous methamphetamine and occasional Xanax) and 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 He complained of restlessness, anxiety, muscle aches and pain and a dry mouth. He was admitted to the hospital and the [facility] protocol for Opiate withdrawal was initiated. Lab was unremarkable. B12 and folate were within normal limits. Urine tox screen was negative for opioids and methamphetamine. A hepatitis panel was ordered but, the results are still pending at the time of [place]. He has known Hep C and he had a negative HIV 1 year ago. He will be going to a residential rehab program at [place]. He has declined Suboxone and Vivitrol treatment because this has not worked for him in the past. He was given a prescription for a Nicotine patch at [place]. PE: alert and oriented X 3 Lungs - CTA HRRR with no MM and no gallop ABD -soft, nontender, nondistended, normal bowel sounds No rashes, no evident cellulitis, no calf tenderness and no edema Neurologic exam-normal This note was generated with [employer] dictation software. It may contain incorrect words, spelling, and punctuation that were not noted in checking the note before signing. Discharge Activity: Return to Normal Activity Call your doctor if you observe: Fever of 101 or Higher, Shortness of breath, - - cough, nausea/vomiting Home Medications: Medications to take at Discharge Nicotine [Nicoderm Cq] 21 mg TRANSDERM. DAILY #28 patch 09/02/17 Following Prescrptions Were Given to Patient: Nicotine [Nicoderm Cq] 21 mg TRANSDERM. DAILY #28 patch Primary Care Physician: Care Physician,No Primary [Primary Care Provider] - Disposition: residential drug tx program Minutes spent on discharge:: 30 Patient Condition:: Good Meaningful Use Info Meaningful Use Diagnoses (Choose all that apply): None applicable
--- NOTE | 2017-09-02 16:38 | CHAPLAIN ---
Type of Pastoral Visit ___ Initial Visit _x__ Follow-up Visit ___ On-call Visit ___ General Patient Visit ___ Spiritual Assessment ___ Family Conference ___ Bereavement ___ Rapid Response ___ Code Blue ___ Other (describe below) Pastoral Care Referral From _x__ Patient ___ Family ___ Nurse ___ Physician ___ [employer] Diver ___ Replenishment Merchandising Associate ___ Other (describe below) Sacrament/Intervention ___ Active listening ___ Anointing ___ Temple ___ Bereavement ___ Communion ___ Brittny exploration ___ ___ Life review _x__ Prayer ___ Reconciliation ___ Sacrament of Sick _x__ Supportive presence ___ Wedding ___ Other (describe below) Pastoral Comments patient was unable to contact his ride through his phone; allowed pt to use my phone to contact Ruby for his transportation
[2017-09-03 10:31] LABS: Hep C Antibodies >11.0 s/co ratio (0.0-0.9)
[2017-09-04 07:44] LABS: Vitamin B1, Thiamine 110.8 nmol/L (66.5-200.0)
== END 2017-09-02 16:35 | disposition home or self-care (01) | DRG 434 ==
PROVIDERS: Admitting Provider Internal Medicine; Visit Provider Internal Medicine
DX: F11.23 Opioid dependence with withdrawal (principal); E44.0 Moderate protein-calorie malnutrition; F15.20 Other stimulant dependence, uncomplicated; F19.221 Other psychoactive substance dependence with intoxication delirium; K59.00 Constipation, unspecified; F32.9 Major depressive disorder, single episode, unspecified; F41.9 Anxiety disorder, unspecified; F17.200 Nicotine dependence, unspecified, uncomplicated; Z68.1 Body mass index [BMI] 19.9 or less, adult; Z86.19 Personal history of other infectious and parasitic diseases; Z85.810 Personal history of malignant neoplasm of tongue
CPT/HCPCS: 36415; 80053; 80074; 80307; 80320; 82150; 82607; 82746; 83690; 84425; 85025; 85610; 97802; 99406; G0480